=== PATIENT | female | born 1945 | race African-American/Black ===

== ENCOUNTER 2018-05-23 07:47 | Day surgery (SDC) | payer MEDICARE, BC ==
--- NOTE | 2018-05-18 12:09 | Pre-Procedure Note/Attestation ---
Pre-Procedure Note/Attestation Complete Prior to Procedure Planned Procedure: right Procedure Narrative: 1. CATARACT EXTRACTION WITH PHACO AND PC IOL IMPLANTATION, RIGHT EYE. 2. LIMBAL RELAXING INCISION, RIGHT EYE Indications for Procedure Pre-Operative Diagnosis: 1. CATARACT , RIGHT EYE. 2. ASTIGMATISM, RIGHT EYE. Attestation I attest that I discussed the nature of the procedure; its benefits; risks and complications; and alternatives (and the risks and benefits of such alternatives ), prior to the procedure, with the patient (or the patient's legal car sales representative). I attest that, if there was a reasonable possibility of needing a blood transfusion, the patient (or the patient's legal car sales representative) was given the [place] [facility] standardized written summary, pursuant to the John Oscar Blood Safety Act ([place] Health and Safety Code # 1645, as amended). I attest that I re-evaluated the patient just prior to the surgery and that there has been no change in the patient's H&P, except as documented below: Declan Simpson MD May 18, 2018 12:09
[~2018-05-23] VITALS: Ht 162.6 cm; Wt 61.2 kg
[~2018-05-23 07:47] MED LIST: ATIVAN1 MG ORAL; LIPITOR PO; acetaZOLAMIDE 125mg tab ORAL ONE
[2018-05-23 08:05] VITALS: BP 137/74
[2018-05-23] MEDS ORDERED: Akten 3.5% 1ml Btl ONE (08:24)
[2018-05-23] MEDS ORDERED: Phenylephrine 10% Opth Soln 5ml ONE (08:24)
[2018-05-23] MEDS ORDERED: Tropicamide 1% Opth 15ml Soln ONE (08:25)
[2018-05-23] MEDS ORDERED: Diclofenac Sod 0.1% Op Soln ONE (08:25)
[2018-05-23] MEDS ORDERED: Vigamox Opth Soln 3ml ONE (08:25)
[2018-05-23] MEDS: Vigamox Opth Soln 3ml RIGHT EYE SCH ×3 (08:27→08:43)
[2018-05-23] MEDS: Akten 3.5% 1ml Btl RIGHT EYE SCH ×3 (08:28→08:43)
[2018-05-23] MEDS: Phenylephrine 10% Opth Soln 5ml RIGHT EYE SCH ×3 (08:28→08:43)
[2018-05-23] MEDS: Tropicamide 1% Opth 15ml Soln RIGHT EYE SCH ×3 (08:29→08:42)
[2018-05-23] MEDS: Diclofenac Sod 0.1% Op Soln RIGHT EYE SCH ×3 (08:29→08:43)
[2018-05-23] MEDS ORDERED: fentaNYL 100 mcg/2 mL IV ONE (08:33)
[2018-05-23] MEDS ORDERED: Midazolam 2mg/2ml Inj ONE (08:33)
[2018-05-23] MEDS ORDERED: EPINEPHrine 1mg/1ml Amp ONE (08:54)
[2018-05-23] MEDS ORDERED: BSS 500ml btl ONE (08:55)
[2018-05-23] MEDS ORDERED: Lidocaine 1% MPF 10mg/ml 5ml ONE (08:55)
[2018-05-23] MEDS ORDERED: Dexamethasone 4mg/ml vial ONE (08:55)
[2018-05-23] MEDS ORDERED: Sodium Hyaluronate 10 mg/ml 0.85ml ONE ×2 (08:55→09:56)
[2018-05-23] MEDS ORDERED: Povidone-Iodine 5% opth solution ONE (08:55)
[2018-05-23] MEDS ORDERED: BSS 15ml BTL ONE (08:55)
[2018-05-23] MEDS ORDERED: Sterile Water Irrig 1000ml IRRIG ONE (09:00)
[2018-05-23] MEDS ORDERED: Propofol 200mg/20ml IV ONE (09:00)
[2018-05-23] MEDS ORDERED: NS Irrig 1000ml ONE (09:00)
[2018-05-23] MEDS ORDERED: LR 1000ml ONE (09:00)
[2018-05-23] MEDS ORDERED: LR 1000ml 1,000 ML IVLG SCH (09:27)
--- NOTE | 2018-05-23 09:27 | Anethesia Preoperative Eval ---
Anesthesia Pre-op PMH/ROS General Date of Evaluation: May 23, 2018 Time of Evaluation: 09:08 Anesthesiologist: Mely ASA Score: ASA 2 Mallampati Score Class I : Soft palate, uvula, fauces, pillars visible Class II: Soft palate, uvula, fauces visible Class III: Soft palate, base of uvula visible Class IV: Only hard plate visible Mallampati Classification: Class II Surgeon: Calvin Diagnosis: R eye cataract Surgical Procedure: R eye cataract extraction Anesthesia History: none Family History: no anesthesia problems Allergies: Coded Allergies: No Known Allergies (Unverified , 05/18/18) Medications: see eMAR Patient NPO?: Yes Past Medical History Cardiovascular: Reports: HTN - mild; Denies: CAD, [place], valve dz, arrhythmia, other Pulmonary: Denies: asthma, COPD, RANDY, other Gastrointestinal/Genitourinary: Reports: GERD; Denies: CRI, ESRD, other Neurologic/Psychiatric: Reports: depression/anxiety; Denies: dementia, CVA, TIA, other Endocrine: Denies: DM, hypothyroidism, steroids, other HEENT: Reports: cataract (L), cataract (R); Denies: glaucoma, UNALAKLEET (L), UNALAKLEET (R), other Hematology/Immune: Denies: anemia, DVT, bleeding disorder, other Musculoskeletal/Integumentary: Reports: OA; Denies: RA, DJD, DDD, edema, other PMH Narrative: as above PSxH Narrative: Colorectal Sx Anesthesia Pre-op Phys. Exam Physician Exam Last Vital Signs Date Time Temp Pulse Resp B/P (MAP) Pulse Ox O2 Delivery O2 Flow Rate FiO2 05/23/18 08:55 Room Air 05/23/18 08:05 97.7 60 18 137/74 98 Constitutional: NAD Neurologic: CN 2-12 intact Cardiovascular: RRR, no M/R/G Respiratory: CTA Gastrointestinal: S/NT/ND Airway Exam Mallampati Score: Class II MO: limited Neck: stiff ROM: limited Teeth: missing Dentures: no upper, no lower Anesthesia Pre-op A/P Labs see chart Studies Pre-op Studies: EKG - SR Risk Assessment & Plan Assessment: ASA 2 Plan: MAC Status Change Before Surgery: No Pre-Antibiotics Drug: none Moises Boone MD May 23, 2018 09:27
[2018-05-23] MEDS ORDERED: DiphenhydrAMINE 50mg/ml Inj IVP PRN (09:30)
[2018-05-23] MEDS ORDERED: fentaNYL 100 mcg/2 mL IV PRN (09:30)
[2018-05-23 09:56] VITALS: BP 130/64
--- NOTE | 2018-05-23 09:58 | Immediate Post-Op Evaluation ---
Immediate Post-Op Evalulation Immediate Post-Op Evalulation Procedure: R eye cataract extraction with IOL Date of Evaluation: May 23, 2018 Time of Evaluation: 09:57 IV Fluids: 200 Blood Products: none Estimated Blood Loss: none Urinary Output: none Blood Pressure Systolic: 138 Blood Pressure Diastolic: 64 Pulse Rate: 58 Respiratory Rate: 20 O2 Sat by Pulse Oximetry: 98 Temperature (Fahrenheit): 97.6 Pain Score (1-10): 1 Nausea: No Vomiting: No Complications none Patient Status: awake, patent, none Hydration Status: adequate Moises Boone MD May 23, 2018 09:58
[2018-05-23 10:00] VITALS: BP 124/75
[2018-05-23 10:05] VITALS: BP 117/61
[2018-05-23] MEDS ORDERED: acetaZOLAMIDE 125mg tab ONE (10:10)
[2018-05-23 10:18] VITALS: BP 111/55
--- NOTE | 2018-05-23 11:03 | Discharge Summary ---
Discharge Summary Discharge Summary Discharge Summary DATE OF ADMISSION: 05/23/2018 DATE OF DISCHARGE: 05/23/2018 REASON FOR HOSPITALIZATION: 1- Cataract right eye 2- Astigmatism, right eye SURGERY PERFORMED: !- Cataract extraction with phaco , rightv ey 2- LRI, OD CONDITION IN THE HOSPITAL:The patient tolerated the surgery without complications. DISCHARGE CONDITION: The patient was stable at discharge. DISCHARGE MEDICATIONS: 1. Vigamox eye drops one drop q.i.d, OD 2. Prednisolone one drop q.i.d, OD 3. Peolenza, 1 drop QD, OD POSTOPERATIVE ORDERS: The patient has to rest at home. No bending, No lifting, No watching Television tonight. POSTOPERATIVE FOLLOW UP: The patient will be followed in my office tomorrow morning at 7 o'clock. Declan Simpson MD May 23, 2018 11:03
--- NOTE | 2018-05-23 11:12 | Brief Operative Note ---
Immediate Post Operative Note Operative Note Chief Complaint: Blurry vision difficulty driving and reading Pre-op Diagnosis: 1. CATARACT , RIGHT EYE. 2. ASTIGMATISM, RIGHT EYE. Procedure: 1- Cataract extraction with phaco and PC IOL implantation, right eye 2- Limbal Relaxing incision ( LRI ), right eye Post-op Diagnosis: same as pre-op Surgeon: Declan wilburn MD Ems Instructor: None Additional Surgeons: None Anesthesiologist: Dr. Boone Anesthesia: MAC Specimen: none Complications: none Condition: stable Fluids: 400ml Estimated Blood Loss: none Drains: none Implant(s) used?: Yes - Monovision PC IOl implanted in the right eye without complication Declan Wilburn MD May 23, 2018 11:12
[2018-05-23 11:23] VITALS: BP 115/72
--- NOTE | 2018-05-23 11:23 | 48 Hour Post Anesthesia Eval ---
Post Anesthesia Evaluation Procedure: R eye cataract extraction with IOL Date of Evaluation: May 23, 2018 Time of Evaluation: 11:22 Blood Pressure Systolic: 115 0: 72 Pulse Rate: 58 Respiratory Rate: 20 Temperature (Fahrenheit): 97.6 O2 Sat by Pulse Oximetry: 98 Airway: patent Nausea: No Vomiting: No Pain Intensity: 1 Hydration Status: adequate Cardiopulmonary Status: stable Mental Status/LOC: patient returned to baseline Follow-up Care/Observations: n/a Post-Anesthesia Complications: none Follow-up care needed: ready to discharge Moises Boone MD May 23, 2018 11:23
--- NOTE | 2018-05-23 22:30 | Operative Note - Dictated ---
DATE OF OPERATION: 05/23/2018 FACILITY: [facility]. SURGEON: Declan Simpson M.D. IP ARCHITECT: None. ANESTHESIOLOGIST: Moises Boone M.D. ANESTHESIA: Monitored anesthesia care (MAC). PREOPERATIVE DIAGNOSES: 1. Cataract, right eye. 2. Astigmatism, right eye. POSTOPERATIVE DIAGNOSES: 1. Cataract, right eye. 2. Astigmatism, right eye. SURGERY PERFORMED: 1. Cataract extraction with phacoemulsification and posterior chamber intraocular lens implantation in the right eye. 2. Limbal relaxing incision (LRI) in the right eye. INDICATION FOR SURGERY: The patient is a 72-year-old lady with history of diabetes mellitus, hypertension, and hypercholesterolemia. The patient is taking atorvastatin and Zocor. The patient is taking amlodipine for blood pressure. The patient is not allergic to any medication. The patient is not a smoker and not a drinker. To improve her vision in the right eye, the cataract has to be removed and posterior chamber intraocular lens has to be implanted. Astigmatism has to be addressed as well. INFORMED CONSENT: The nature of the surgery, risks, benefits, alternatives, and potential complications were all explained in detail to the patient. The potential complications including, but not limited to bleeding, infection, posterior capsular rupture, lens subluxation, flat anterior chamber, iris prolapse, uveitis, wound leakage, corneal edema, macular edema, endopthalmitis, retinal detachment, loss of vision, and even loss of the eye were all explained in detail to the patient . The patient voiced understanding and accepted all the complications. The alternatives including accommodating lenses, multifocal lenses, toric lens, and conventional cataract surgery with limbal relaxing incision (LRI) for treatment of astigmatism all were explained in detail to the patient. The patient voiced understanding. The patient elected to have conventional cataract surgery with limbal relaxing incision for treatment of astigmatism. DESCRIPTION OF SURGERY AND FINDINGS: Following that the patient was taken to the operating room in stable condition. Lidocaine gel Akten 3.5% were applied to the conjunctiva of the right eye. IV sedation was given by the anesthesiologist, Dr. Boone. After adequate anesthesia and sedation had been achieved, the right eye was prepped and draped in a sterile fashion for intraocular surgery. Following that a speculum was placed in the right eye. Before the patient was taken to the operation room, the cornea was marked at 180 and 90 meridian. In the operation room, using a corneal marker and a marking pen, a thick meridian of the cornea was marked. Following that, using a arnulfo knife with 550 micron blade, a parallel incision was placed in the steep meridian of the cornea. Following that using a Super Sharp knife, a clear corneal side port was created. A 1% lidocaine without preservative (MPF) was injected into the anterior chamber. Viscoelastic agent Healon was injected into the anterior chamber. Following that using a 2.8 mm keratome, a clear corneal temporal keratotomy was performed. VisionBlue was injected under the viscoelastic agent to stain the anterior capsule of the lens. Following that clear fresh viscoelastic agent was injected into the anterior chamber again. Under the viscoelastic agent, an anterior capsulotomy was performed in the fashion of capsulorrhexis beautifully. Following that, whole viscoelastic agent and stain was removed from the anterior chamber. Following that, with balanced salt solution, hydrodissection and hydrodelineation was performed and the nucleus was freed. Following that, using irrigation aspiration unit, the cortical material was removed from the capsular bag and the capsular bag was polished. Following that, the capsular bag was filled with viscoelastic agent, Healon. Following that, a +21.0 diopter PCB00 foldable lens with serial number #[id number] was injected into the capsular bag. Using a Sinskey hook, the lens was manipulated and put in the proper position. Following that, the viscoelastic agent was removed from the anterior and posterior part of the lens. Following that, the anterior chamber was filled with balanced salt solution and the wound was hydrated with balanced salt solution and the wound was checked for leakage and there was some leakage that is septic and there was no more leakage. At the end of the surgery, Vigamox eye drops were applied to the conjunctiva of the right eye. The eye was patched with a clear sterile fenestrated shield. Following that, the patient was transferred to the recovery room. In the recovery room, 125 mg Diamox was given by mouth stat. Postoperative orders and directions were given to the patient. The patient will be discharged home upon stabilization. The patient will be followed in my office tomorrow morning. Declan Simpson M.D. DR: REJI JOB#: [id number] CC:
== END 2018-05-23 11:10 | disposition home or self-care (01) ==
LOC: SUR 07:47
DX: H25.9 Unspecified age-related cataract (principal); H52.201 Unspecified astigmatism, right eye; I10 Essential (primary) hypertension; E11.9 Type 2 diabetes mellitus without complications; E78.00 Pure hypercholesterolemia, unspecified; Z85.048 Personal history of other malignant neoplasm of rectum, rectosigmoid junction, and anus
CPT/HCPCS: 66984; 66999; J0171; J1100; J2250; J2704; J3010; V2632; 94003; 94150

== ENCOUNTER 2018-07-25 06:52 | Day surgery (SDC) | payer BC, MEDICARE ==
[~2018-07-25] VITALS: Ht 162.6 cm; Wt 59.9 kg
[2018-07-25] VITALS (9 sets, daily range): BP systolic 105–130; BP diastolic 52–76
[2018-07-25] MEDS: Phenylephrine 10% Opth Soln 5ml LEFT EYE SCH ×3 (05:55→07:14)
[~2018-07-25 06:52] MED LIST changes: +Akten 3.5% 1ml Btl LEFT EYE ONE; +Diclofenac Sod 0.1% Op Soln LEFT EYE ONE; +Phenylephrine 2.5% Op 2ml Soln LEFT EYE ONE; +Tropicamide 1% Opth 15ml Soln LEFT EYE ONE; +Vigamox Opth Soln 3ml LEFT EYE ONE; -acetaZOLAMIDE 125mg tab ORAL ONE
[2018-07-25] MEDS ORDERED: Midazolam 2mg/2ml Inj ONE ×2 (06:53→07:37)
[2018-07-25] MEDS ORDERED: fentaNYL 100 mcg/2 mL IV ONE ×2 (06:53→07:37)
[2018-07-25] MEDS ORDERED: Carbachol 0.01% Op Soln 1.5ml vial ONE (07:10)
[2018-07-25] MEDS ORDERED: Lidocaine 1% MPF 10mg/ml 5ml ONE (07:10)
[2018-07-25] MEDS ORDERED: EPINEPHrine 1mg/1ml Amp ONE (07:10)
[2018-07-25] MEDS ORDERED: Dexamethasone 4mg/ml vial ONE (07:11)
[2018-07-25] MEDS ORDERED: BSS 500ml btl ONE (07:11)
[2018-07-25] MEDS ORDERED: Sodium Hyaluronate 10 mg/ml 0.85ml ONE (07:11)
[2018-07-25] MEDS ORDERED: BSS 15ml BTL ONE (07:11)
[2018-07-25] MEDS ORDERED: Tetracaine 0.5% Opth 4ml Soln ONE (07:11)
[2018-07-25] MEDS ORDERED: Povidone-Iodine 5% opth solution ONE (07:11)
[2018-07-25] MEDS ORDERED: Atropine Inj 1mg/10ml Syr IV PRN (07:15)
[2018-07-25] MEDS ORDERED: Midazolam 2mg/2ml Inj IVP PRN (07:15)
[2018-07-25] MEDS ORDERED: fentaNYL 100 mcg/2 mL IV PRN (07:15)
[2018-07-25] MEDS ORDERED: DiphenhydrAMINE 50mg/ml Inj IVP PRN (07:15)
--- NOTE | 2018-07-25 07:17 | Anethesia Preoperative Eval ---
Anesthesia Pre-op PMH/ROS General Date of Evaluation: July 25, 2018 Time of Evaluation: 07:00 Anesthesiologist: brittany ASA Score: ASA 3 Mallampati Score Class I : Soft palate, uvula, fauces, pillars visible Class II: Soft palate, uvula, fauces visible Class III: Soft palate, base of uvula visible Class IV: Only hard plate visible Mallampati Classification: Class II Surgeon: akila Diagnosis: nuclear sclerotic caract os Surgical Procedure: cataract extraction w/iol implant os Anesthesia History: none Social History: smoking - fomer smoker Allergies: Coded Allergies: No Known Allergies (Unverified , 07/25/18) Medications: see eMAR Patient NPO?: Yes Past Medical History Cardiovascular: Reports: other - hypercholesterolemia Pulmonary: Denies: asthma, COPD, RANDY, other Gastrointestinal/Genitourinary: Denies: GERD, CRI, ESRD, other Neurologic/Psychiatric: Reports: depression/anxiety Endocrine: Denies: DM, hypothyroidism, steroids, other HEENT: Reports: cataract (L), cataract (R) Hematology/Immune: Denies: anemia, DVT, bleeding disorder, other Musculoskeletal/Integumentary: Reports: OA, other - skin cancer Anesthesia Pre-op Phys. Exam Physician Exam Last Vital Signs Date Time Temp Pulse Resp B/P (MAP) Pulse Ox O2 Delivery O2 Flow Rate FiO2 07/25/18 07:11 97.6 60 18 130/58 98 Room Air Constitutional: NAD Neurologic: CN 2-12 intact Cardiovascular: RRR Respiratory: CTA Gastrointestinal: S/NT/ND Airway Exam Mallampati Score: Class II MO: limited Neck: flexible TMD: 2fb ROM: limited Anesthesia Pre-op A/P Risk Assessment & Plan Assessment: asa3 Plan: mac Status Change Before Surgery: No Pre-Antibiotics Drug: Brittanie Ochoa MD July 25, 2018 07:17
[2018-07-25] MEDS ORDERED: NS Irrig 1000ml ONE (07:37)
[2018-07-25] MEDS ORDERED: LR 1000ml ONE (07:37)
[2018-07-25] MEDS ORDERED: Sterile Water Irrig 1000ml IRRIG ONE (07:37)
[2018-07-25] MEDS ORDERED: acetaZOLAMIDE 125mg tab ONE (08:21)
--- NOTE | 2018-07-25 08:24 | Pre-Procedure Note/Attestation ---
Pre-Procedure Note/Attestation Complete Prior to Procedure Planned Procedure: left Procedure Narrative: 1- Cataract,extraction left eye 2- LRI left eye Indications for Procedure Pre-Operative Diagnosis: 1- Cataract left eye 2- Astigmatism, left eye Attestation I attest that I discussed the nature of the procedure; its benefits; risks and complications; and alternatives (and the risks and benefits of such alternatives ), prior to the procedure, with the patient (or the patient's legal public health representative). I attest that, if there was a reasonable possibility of needing a blood transfusion, the patient (or the patient's legal public health representative) was given the [facility] standardized written summary, pursuant to the John Oscar Blood Safety Act ([place] Health and Safety Code # 1645, as amended). I attest that I re-evaluated the patient just prior to the surgery and that there has been no change in the patient's H&P, except as documented below: Declan Simpson MD July 25, 2018 08:24
[2018-07-25] MEDS ORDERED: acetaZOLAMIDE 125mg tab ORAL SCH (08:45)
--- NOTE | 2018-07-25 09:23 | Discharge Summary ---
Discharge Summary Discharge Summary Discharge Summary DATE OF ADMISSION:07/25/18 DATE OF DISCHARGE:07/25/18 REASON FOR HOSPITALIZATION: Cataract and astigmatism SURGERY PERFORMED: 1- Cataract extractio left eye 2- LRI left eye CONDITION IN THE HOSPITAL:The patient tolerated the surgery without complications. DISCHARGE CONDITION: The patient was stable at discharge. DISCHARGE MEDICATIONS: 1. Vigamox eye drops one drop q.i.d, OS 2. Prednisolone one drop q.i.d,OS 3. Prolensa once a day left eye+ POSTOPERATIVE ORDERS: The patient has to rest at home. No bending, No lifting, No watching Television tonight. POSTOPERATIVE FOLLOW UP: The patient will be followed in my office tomorrow morning at 7 o'clock. Declan Simpson MD July 25, 2018 09:23
--- NOTE | 2018-07-25 09:28 | Brief Operative Note ---
Immediate Post Operative Note Operative Note Chief Complaint: Blurry vision, difficulty driving Pre-op Diagnosis: 1- Cataract left eye 2- Astigmatism, left eye Procedure: 1- Cataract extraction with phaco and PC IOL implantation, left eye 2- Limbal Relaxing Incision ( LRI ), left eye Post-op Diagnosis: same as pre-op Surgeon: Declan Simpson MD Ironer Machine: Dr Alarcon Additional Surgeons: None Anesthesiologist: None Anesthesia: MAC Specimen: none Complications: none Condition: stable Fluids: 300ml Estimated Blood Loss: none Drains: none Implant(s) used?: Yes - Monofocal PC IOL implanted in the left eye without complication Declan Simpson MD July 25, 2018 09:28
--- NOTE | 2018-07-25 09:59 | Immediate Post-Op Evaluation ---
Immediate Post-Op Evalulation Immediate Post-Op Evalulation Procedure: cataract extraction w/ iol implant os Date of Evaluation: July 25, 2018 Time of Evaluation: 08:37 IV Fluids: 150ml lr Blood Products: none Estimated Blood Loss: negligible Blood Pressure Systolic: 102 Blood Pressure Diastolic: 54 Pulse Rate: 58 Respiratory Rate: 18 O2 Sat by Pulse Oximetry: 98 Temperature (Fahrenheit): 97.7 Pain Score (1-10): 0 Nausea: No Vomiting: No Complications none Patient Status: awake, reacts, patent Hydration Status: adequate Drug: Brittanie Ochoa MD July 25, 2018 09:59
--- NOTE | 2018-07-25 10:00 | 48 Hour Post Anesthesia Eval ---
Post Anesthesia Evaluation Procedure: cataract extraction w/ iol implant os Date of Evaluation: July 25, 2018 Time of Evaluation: 08:39 Blood Pressure Systolic: 114 0: 52 Pulse Rate: 52 Respiratory Rate: 18 Temperature (Fahrenheit): 97.7 O2 Sat by Pulse Oximetry: 98 Airway: patent Nausea: No Vomiting: No Pain Intensity: 0 Hydration Status: adequate Cardiopulmonary Status: stable Mental Status/LOC: patient returned to baseline Post-Anesthesia Complications: none Follow-up care needed: N/A Brittanie Stack MD July 25, 2018 10:00
--- NOTE | 2018-07-30 23:45 | Operative Note - Dictated ---
DATE OF OPERATION: 07/25/2018 FACILITY: [facility]. SURGEON: Declan Simpson M.D. DIRECTOR OF BILLING: None. ANESTHESIOLOGIST: Dr. Lawler. ANESTHESIA: Monitored anesthesia care (MAC). PREOPERATIVE DIAGNOSES: 1. Cataract, left eye. 2. Astigmatism, left eye. POSTOPERATIVE DIAGNOSES: 1. Cataract, left eye. 2. Astigmatism, left eye. SURGERY PERFORMED: 1. Cataract extraction with phacoemulsification and posterior chamber intraocular lens implantation on the left side. 2. Limbal-relaxing incision in the left eye. INDICATION FOR SURGERY: The patient is a 72-year-old lady with history of diabetes mellitus, hypertension, and hypercholesterolemia. The patient is taking atorvastatin and Zocor. The patient is taking amlodipine for blood pressure as will. The patient is not allergic to any medications. The patient is not a smoker and not drinker. To improve her vision in the left eye, the cataract has to be removed and posterior chamber intraocular lens has to be implanted. Astigmatism has to be addressed as well. INFORMED CONSENT: The nature of the surgery, risks, benefits, alternatives, and potential complications were all explained in detail to the patient. The potential complications including, but not limited to bleeding, infection, posterior capsular rupture, lens subluxation, flat anterior chamber, iris prolapse, uveitis, wound leakage, corneal edema, macular edema, endophthalmitis, retinal detachment, loss of vision, and the loss of the eye were all explained in detail to the patient. The patient voiced understanding and accepted all the complications. The alternatives including accommodating lens, multifocal lens, toric lens, and conventional cataract surgery with limbal relaxing incision (LRI) for treatment of astigmatism all were explained in detail to the patient. The patient voiced understanding. The patient elected to have conventional cataract surgery with limbal relaxing incision for treatment of astigmatism. Then, she signed the consent form, which is in the chart. DESCRIPTION OF SURGERY AND FINDINGS: Following that, the patient was taken to the operation room in stable condition. Lidocaine gel Akten 3.5% were applied to the conjunctiva of the left eye. IV sedation was given by the anesthesiologist, Dr. Lawler. After adequate anesthesia and sedation had been achieved, the left eye was prepped and draped in sterile fashion for intraocular surgery. Following that, a speculum was placed in the left eye. Before the patient was taken to the operating room, the cornea was marked at 180 and 90 meridian. In the operating room, using a corneal marker and marking pen, the steep meridian of the cornea was marked. Following that, using a arnulfo knife with 500 micron blade, two parallel incisions were placed on the steep meridian of the cornea. Following that, using a Super Sharp knife, a clear corneal side port was created. A 1% lidocaine without preservative (MPF) was injected into the anterior chamber. Following that, viscoelastic agent, Healon was injected into the anterior chamber. Following that, using a 2.8 mm keratome, a clear corneal temporal keratotomy was performed. VisionBlue was injected under the viscoelastic agent to stain the anterior capsule of the lens. Following that, clear fresh viscoelastic agent was injected into the anterior chamber again. Under the viscoelastic agent, an anterior capsulotomy was performed in the fashion of capsulorrhexis beautifully. Following that, the viscoelastic agent was removed from anterior chamber. Following that, with balanced salt solution, hydrodissection and hydrodelineation were performed and the nucleus was freed. Following that, using phacoemulsification machine in the fashion of horizontal chop, the nucleus was removed in toto. Following that, the cortical material was removed and the capsular bag was polished. Following that, the capsular bag was filled with viscoelastic agent, Healon. Following that, a +22.0 diopter PCB00 foldable IOL was injected into the capsular bag. The serial number of [id number]. Using a Sinskey hook, the lens was manipulated within the proper position. Following that, whole viscoelastic agent was removed from the anterior and posterior parts of the lens. Following that, the anterior chamber was filled with balanced salt solution and the wound was hydrated with balanced salt solution. Vigamox eye drops were applied to the conjunctiva of the left eye. The patient tolerated the surgery without complications. At the end of the surgery, the eye was patched with a clear sterile fenestrated shield. Following that, the patient was transferred to the recovery room. In the recovery room, 125 mg Diamox was given by mouth stat. Postoperative orders and directions were given to the patient. The patient will be discharged home upon stabilization. The patient will be followed in my office tomorrow morning. Declan Simpson M.D. DR: IVANNA JOB#: [id number] CC:
== END 2018-07-25 10:00 | disposition home or self-care (01) ==
LOC: SUR 06:52
DX: H25.12 Age-related nuclear cataract, left eye (principal); H52.202 Unspecified astigmatism, left eye; E11.9 Type 2 diabetes mellitus without complications; I10 Essential (primary) hypertension; E78.00 Pure hypercholesterolemia, unspecified; Z79.899 Other long term (current) drug therapy; Z85.048 Personal history of other malignant neoplasm of rectum, rectosigmoid junction, and anus; Z87.891 Personal history of nicotine dependence; F32.9 Major depressive disorder, single episode, unspecified; F41.9 Anxiety disorder, unspecified; M19.90 Unspecified osteoarthritis, unspecified site; Z85.828 Personal history of other malignant neoplasm of skin
CPT/HCPCS: 66984; 66999; J0171; J1100; J2250; J3010; V2632; 94003; 94150